=== PATIENT | female | born 1955 | race African-American/Black ===

== ENCOUNTER 2018-11-06 07:26 | Emergency (ER) | payer BC ==
[~2018-11-06] VITALS: Ht 162.6 cm; Wt 68.0 kg
[2018-11-06] MEDS ORDERED: KETOROLAC 30MG/ML VIAL IV STA (07:43)
[2018-11-06] MEDS ORDERED: OXYCODONE HCL/ACETAMINOPHEN 5/325MG TABLET PO ONE (09:15)
[2018-11-06] MEDS ORDERED: MORPHINE SULFATE 4 MG/ML CPJ (NOT FOR IM USE) IV ONE (10:00)
[2018-11-06] MEDS ORDERED: DIPHENHYDRAMINE 50MG/ML VIAL IV ONE (10:00)
[2018-11-06 10:57] VITALS: BP 171/90
== END 2018-11-06 10:43 | disposition home or self-care (01) ==
LOC: ER 07:26
DX: M54.12 Radiculopathy, cervical region (principal); I10 Essential (primary) hypertension; Z98.890 Other specified postprocedural states
CPT/HCPCS: 72125; 93005; 96374; 96375; 99284; J1200; J1885; J2270; Z7610